=== PATIENT | female | born 1995 | race Caucasian/White ===

== ENCOUNTER 2023-12-17 14:42 | Outpatient (REF) | payer OTHER, SELFPAY ==
--- NOTE | ~2023-12-17 | CT_ITS ---
EXAMINATION: CT ABDOMEN AND PELVIS WITHOUT CONTRAST CLINICAL INFORMATION: Stone COMPARISON: Renal and bladder ultrasound from 2022 TECHNIQUE: Multidetector volumetric imaging was performed from the superior aspect of the liver through the pubic symphysis. Sagittal and coronal reformatted images were obtained on the technologist's workstation. This CT examination was performed using dose optimization techniques as appropriate, variously including the following: *Automated exposure control *Adjustment of mA and/or kV according to patient size (this includes techniques or standardized protocols for targeted exams where dose is matched to indication/reason for exam; i.e. extremities or head) *Use of iterative reconstruction technique DLP: 617 mGy-cm FINDINGS: LUNG BASES: The visualized lung bases are unremarkable. LIVER, GALLBLADDER, AND BILIARY TREE: The liver is normal in size, shape, and attenuation. No focal hepatic lesion or biliary ductal dilatation is present. The gallbladder is unremarkable with no evidence of radiopaque gallstones, gallbladder wall thickening, or obvious pericholecystic inflammatory changes. PANCREAS: Unremarkable. SPLEEN: Unremarkable. ADRENAL GLANDS: Unremarkable. KIDNEYS AND URETERS: There are multiple small os. Stones in the mid and lower pole of the right kidney. Largest stone measures 2 to 3 mm. Tiny punctate stones in the lower pole of the left kidney measuring 1 mm. No hydronephrosis. Mild bilateral ureteral dilatation. No ureteral stone. BLADDER: Unremarkable. GASTROINTESTINAL TRACT: Mild diverticulosis. No evidence of diverticulitis. The small and large bowel are otherwise unremarkable. The appendix is unremarkable. ABDOMINAL WALL: No significant hernia is appreciated. LYMPH NODES: Normal. VASCULAR: Unremarkable. PELVIC VISCERA: 3.5 x 4 cm right ovarian cyst. Uterus and left adnexa are unremarkable.. OSSEOUS STRUCTURES: Unremarkable. CT/CT abdomen pelvis wo IV con IMPRESSION: Multiple small clustered stones in the mid and lower pole of the right kidney. Small punctate stones in the lower pole of the left kidney. No hydronephrosis. Mild bilateral ureteral dilatation. No ureteral stone. Mild diverticulosis of the colon. 3.5 x 4 cm right ovarian cyst. Fleischner guidelines were followed.
== END 2023-12-17 14:43 | disposition home or self-care (01) ==
LOC: HO.CT 14:42
PROVIDERS: Visit Provider Physician Assistant Surgical
DX: N20.2 Calculus of kidney with calculus of ureter (principal)
CPT/HCPCS: 74176